=== PATIENT | female | born 2000 | race Caucasian/White ===

== ENCOUNTER 2020-12-22 20:43 | Emergency (ER) | payer OTHER, SELFPAY ==
[2020-12-22 21:10] VITALS: BP 121/96; PULSE 101; RESP 22; TEMP 38.7; O2SAT 98; BMI 39.0
--- NOTE | 2020-12-22 21:23 | HMH.EDUTC ---
[facility] [place] Clinical Impression: Sciatica Qualifiers: Laterality: right Qualified Code(s): M54.31 - Sciatica, right side Disposition: Home, Self-Care Condition on Discharge: Good Instructions: DI for Sciatica, DI for Fever (Symptom) -- Adult, DI for COVID-19 (Suspected or Confirmed ), Preventing the Spread of Coronavirus Discharge Instructions Additional Instructions: *Monitor Temp, Over the counter Motrin or Tylenol as directed/as needed Tylenol every 4 hours and Motrin every 6 hours (as long as your family doctor has told you that you can take it) for fever or pain. and straight to ER if unable to lower temp less than 101.0 after medication given *Warm salt water gargles may help to soothe the throat *Throat Lozenges *Warm fluids like tea with honey may help to soothe the throat *Sleep elevated *Humidifier/Vaporizer Take medication as prescribe for your Sciatica pain Follow up IMMEDIATELY for new or worsening symptoms or no Noticeable improvement over the next 48-72 hours. 911 for difficulty breathing or swallowing You were tested for today for COVID19 your test result should be back in the next 24-48 hours, You was given handout for instructions to [facility] to view your result if you are unable to log on you may call You was given a handout with instructions for Self Quarantine and Self isolation for while you wait on test results and what to do if they are positive If you are positive the Health Dept will be contacting you also Make sure to take your Vitamins Vit. C Vit D and Zinc if you can take them Prescriptions: Ibuprofen [Ibuprofen 600mg Tablet] 600 mg PO Q6HP PRN #20 tab PRN Reason: Moderate Pain Transmission Status: Received by [id number] predniSONE [Prednisone 5mg Tab Dose-Pack] 5 mg PO UD DOSE PK 6 Days #21 tab Transmission Status: Received by [id number] Referrals: Adriana Ritchie [Primary Care Provider] - As needed Forms: Work/School Release Time of Disposition: 21:34 Medical Decision Making - Lj Inquiry Pt receiving controlled substance: No Lj was queried for this patient: No Vital Signs: 12/22/20 21:10 Temperature 101.6 F H Temperature Source Oral Pulse Rate [Right Brachial] 101 H Respiratory Rate 22 Blood Pressure [Right Arm] 121/96 H Blood Pressure Mean [Right Arm] 104 Blood Pressure Source [Right Arm] Automatic Cuff Blood Pressure Position [Right Arm] Sitting 02 Sat by Pulse Oximetry 98 Oxygen Delivery Method Room Air - Lab Data Lab results reviewed: Yes: I reviewed the patient's lab results. Orders (Tests/Meds): ED MEDICATIONS Discontinued Medications Generic Name Dose Route Start Last Admin Trade Name Frecarlo PRN Reason Stop Dose Admin Ibuprofen 600 mg 12/22/20 21:23 12/22/20 21:28 Ibuprofen 600 Mg Tablet PO 12/22/20 21:24 600 mg ONCE ONE Administration ORDERS Category Date Time Status Covid-19 Nasal PCR ([facility]) Routine Lab 12/22/20 21:00 [place] [facility] [place] - General Stated complaint: covid test with symptoms Time Seen by Provider: 12/22/20 21:23 Mode of Arrival: Ambulatory Source of Information: Patient Description of Symptoms (Recalled from Triage Doc. by RN): fever, sweats, body aches, congestion HEENT Symptoms (Recalled from RN notes): Yes Resp Symptoms (Recalled from RN notes): Yes Skin Symptoms (Recalled from RN notes): No MS Symptoms (Recalled from RN notes): No Functional Status (Recalled from RN notes): yes - History of Present Illness Provider Complaint: Patient states that she was fine and then she started feeling bad that came on quickly State that she notice she felt like she was getting a fever, having body aches, chills and slight headache States that she has been taking Tylenol all day and the fever would break and she would sweat then in a couple hours it would return States that she also has a history of sciatica and thinks it may be flaring up too she is having pain her ri
[2020-12-22 21:43] LABS: UTC Pregnancy Test, Urine Negative (Negative)
[2020-12-22 21:44] VITALS: BP 121/96; PULSE 101; RESP 22; TEMP 37.9; O2SAT 98
== END 2020-12-22 21:44 | disposition home or self-care (01) ==
PROVIDERS: Emergency Provider Nurse Practitioner; PCP Family Medicine
DX: M54.31 Sciatica, right side (principal); U07.1 COVID-19; M79.10 Myalgia, unspecified site
CPT/HCPCS: 81025; 99202; C9803; G0463; U0003; U0005

== ENCOUNTER 2020-12-30 14:11 | Emergency (ER) | payer OTHER, SELFPAY ==
[2020-12-30 14:12] VITALS: BP 121/83; PULSE 129; RESP 18; TEMP 36.7; O2SAT 96; BMI 39.0
[2020-12-30 14:30] VITALS: BP 120/82; PULSE 91; O2SAT 93
--- NOTE | 2020-12-30 14:47 | HMH.EDGENADL ---
ED Disposition Clinical Impression: Gastroenteritis, Bronchitis due to COVID-19 virus Disposition: Home, Self-Care Condition on Discharge: Good Instructions: DI for Nausea -- Adult Prescriptions: Albuterol Sulfate [Albuterol Sulfate Hfa] 2 puff IH Q4HP PRN #1 each PRN Reason: Wheezing Transmission Status: Pending to [id number] Ondansetron [Zofran 4mg ODT] 4 mg PO BIDP PRN #10 tab PRN Reason: Nausea Transmission Status: Pending to [id number] Referrals: Adriana Ritchie [Primary Care Provider] - - Critical Care Critical Care Time: No Attestation: On 12/30/20, the high probability of a clinically significant, sudden or life threatening deterioration of the following system(s) required my full and direct attention, intervention and personal management. The time I documented below is in addition to time spent performing reported procedures but includes the following listed in this critical care notation. Medical Decision Making - Medical Records Medical records reviewed: Yes: I reviewed the patient's medical records. - Lj Inquiry Pt receiving controlled substance: No Vital Signs: 12/30/20 14:12 12/30/20 14:30 12/30/20 15:00 Temperature 98.1 F Temperature Source Oral Pulse Rate 91 H 82 Pulse Rate [Left Radial] 129 H Respiratory Rate 18 Blood Pressure 120/82 125/79 Blood Pressure [Right Arm] 121/83 Blood Pressure Mean 92 93 Blood Pressure Mean [Right Arm] 95 Blood Pressure Source [Right Arm] Automatic Cuff Blood Pressure Position [Right Arm] Sitting 02 Sat by Pulse Oximetry 96 93 L 100 Oxygen Delivery Method Room Air 12/30/20 15:30 12/30/20 16:00 Temperature Temperature Source Pulse Rate 83 76 Pulse Rate [Left Radial] Respiratory Rate Blood Pressure 130/80 141/93 H Blood Pressure [Right Arm] Blood Pressure Mean 99 109 Blood Pressure Mean [Right Arm] Blood Pressure Source [Right Arm] Blood Pressure Position [Right Arm] 02 Sat by Pulse Oximetry 98 95 Oxygen Delivery Method - Lab Data Lab Results 12/30/20 14:39: WBC 4.5 L, RBC 4.68, Hgb 13.7, Hct 41.7, MCV 89.2, MCH 29.4, MCHC 32.9, RDW 13.5, Plt Count 387, MPV 8.7, Neut % (Auto) 71.6, Lymph % (Auto) 23.5, [place] % (Auto) 3.5, Eos % (Auto) 0.6, Baso % (Auto) 0.8, Neut # (Auto) 3.2, Lymph # (Auto) 1.1, [place] # (Auto) 0.2, Eos # (Auto) 0.0, Baso # (Auto) 0.0 12/30/20 14:39: Sodium 143, Potassium 4.0, Chloride 107, Carbon Dioxide 28, Anion Gap 12.0, BUN 10, Creatinine 0.60, Estimated Creat Clear 211, Estimated GFR 125, Est GFR ( Amer) 151, Glucose 106 H, Calcium 9.2, Total Bilirubin 0.4, AST 46 H, ALT 32, Alkaline Phosphatase 80, Total Protein 7.6, Albumin 3.7, Globulin 3.9 H, Albumin/Globulin Ratio 0.9 L, Lipase 42 Result diagrams: 12/30/20 14:39 12/30/20 14:39 Orders (Tests/Meds): ED MEDICATIONS Generic Name Dose Route Start Last Admin Trade Name Freq PRN Reason Stop Dose Admin Sodium Chloride 8 ml 12/30/20 14:40 12/30/20 14:50 Sodium Chloride 0.9% 10ml Vial IV 01/29/21 14:39 8 ml NEEDED PRN Administration dilute pepcid Discontinued Medications Generic Name Dose Route Start Last Admin Trade Name Najma PRN Reason Stop Dose Admin Dexamethasone Sodium Phosphate 10 mg 12/30/20 14:40 12/30/20 14:50 Dexamethasone 4mg/Ml 5ml Mdv IV 12/30/20 14:41 10 mg ONCE ONE Administration Famotidine 20 mg 12/30/20 14:40 12/30/20 14:50 Famotidine 20mg/2ml Vial IV 12/30/20 14:41 20 mg ONCE ONE Administration Sodium Chloride 1,000 mls @ 999 mls/hr 12/30/20 14:45 12/30/20 14:50 Sod Chlor 0.9% 1000ml Bag IV 12/30/20 15:45 999 mls/hr .Q1H1M KILEY Administration Ondansetron HCl 4 mg 12/30/20 14:40 12/30/20 14:50 Ondansetron 4mg/2ml Vial IV 12/30/20 14:41 4 mg ONCE ONE Administration - Reevaluation(s) Time: 16:24 Reevaluation #1: On reevaluation, patient is feeling much better. There is no respiratory distress o
[2020-12-30 14:55] LABS: Basophils % 0.8 % (0.1-2.0); Eosinophils % 0.6 % (0.1-12.0); Hematocrit 41.7 % (37.0-47.0); Hemoglobin 13.7 g/dL (12.2-16.2); Lymphocytes # 1.1 K/mm3 (0.7-4.5); Lymphocytes % 23.5 % (10-50); Mean Corpuscular HGB Conc 32.9 g/dL (31.8-35.4); Mean Corpuscular Hemoglobin 29.4 pg (27.0-31.2); Mean Corpuscular Volume 89.2 fl (81-99); Mean Platelet Volume 8.7 fl (7.4-10.4); Monocytes # 0.2 K/mm3 (0.1-1.0); Monocytes % 3.5 % (1.7-9.3); Neutrophils # 3.2 K/mm3 (1.8-7.8); Neutrophils % 71.6 % (37.0-80.0); Platelet Count 387 K/mm3 (142-424); Red Blood Count 4.68 M/mm3 (4.20-5.40); Red Cell Distribution Width 13.5 % (11.5-17.5); White Blood Count 4.5 K/mm3 (4.8-10.8)
[2020-12-30 15:00] VITALS: BP 125/79; PULSE 82; O2SAT 100
[2020-12-30 15:10] LABS: Alanine Aminotransferase 32 U/L (12-78); Albumin Level 3.7 g/dl (3.5-5.0); Albumin/Globulin Ratio 0.9 (1.1-1.8); Alkaline Phosphatase 80 U/L (38-126); Aspartate Amino Transferase 46 U/L (14-36); Bilirubin,Total 0.4 mg/dl (0.2-1.3); Blood Urea Nitrogen 10 mg/dl (7-17); Calcium 9.2 mg/dl (8.4-10.2); Carbon Dioxide 28 mmol/L (22.0-30.0); Chloride 107 mmol/L (98-107); Creatinine Clearance Estimated 211 mL/min (50-200); Estimated Glomerular Filt Rate 125 ml/min (>60); GFR (African American) 151 ML/MIN (>60); Globulin 3.9 g/dL (1.3-3.2); Glucose 106 mg/dl (74-100); Lipase 42 U/L (23-300); Sodium 143 mmol/L (136-145); Total Protein,Serum 7.6 g/dl (6.3-8.2)
[2020-12-30 15:30] VITALS: BP 130/80; PULSE 83; O2SAT 98
[2020-12-30 16:00] VITALS: BP 141/93; PULSE 76; O2SAT 95
[2020-12-30 17:17] VITALS: BP 122/78; PULSE 78; RESP 16; TEMP 36.6; O2SAT 98
== END 2020-12-30 17:19 | disposition home or self-care (01) ==
PROVIDERS: Emergency Provider Emergency Medicine; PCP Family Medicine
DX: U07.1 COVID-19 (principal); K52.9 Noninfective gastroenteritis and colitis, unspecified; J20.9 Acute bronchitis, unspecified
CPT/HCPCS: 80053; 83690; 85025; 96365; 96375; 99282; J2405